=== PATIENT | female | born 1980 | race Caucasian/White ===

== ENCOUNTER 2017-01-22 23:22 | Emergency (ER) | payer OTHER ==
[~2017-01-22] VITALS: Ht 160 cm; Wt 56.8 kg
[~2017-01-22 23:22] MED LIST: NOCURR
[2017-01-23] MEDS ORDERED: ACETAMINOPHEN/CODEINE 300-30 MG TABLET PO ONE (01:00)
[2017-01-23] MEDS ORDERED: PENICILLIN V POTASSIUM 500 MG TABLET PO ONE (01:00)
[2017-01-23] MEDS ORDERED: IBUPROFEN 600 MG TABLET PO ONE (01:00)
[2017-01-23 01:34] VITALS: BP 119/78
== END 2017-01-23 01:36 | disposition home or self-care (01) ==
LOC: EMS 23:24
DX: K05.10 Chronic gingivitis, plaque induced (principal)
CPT/HCPCS: 99284; 99406